=== PATIENT | male | born 1995 | race Caucasian/White ===

== ENCOUNTER 2025-02-11 12:40 | Emergency (ER) | payer SELFPAY | END 2025-02-11 14:23 | disposition home or self-care (01) | LOC: MADERS 12:40 | DX: S49.91XA Unspecified injury of right shoulder and upper arm, initial encounter (principal); S29.9XXA Unspecified injury of thorax, initial encounter; J45.909 Unspecified asthma, uncomplicated; F17.220 Nicotine dependence, chewing tobacco, uncomplicated; Z79.51 Long term (current) use of inhaled steroids; W55.29XA Other contact with cow, initial encounter | CPT/HCPCS: 71046 ==